=== PATIENT | female | born 1940 | race Caucasian/White ===

== ENCOUNTER 2023-06-28 15:34 | Inpatient (IN) | payer MEDICARE ==
[2023-06-28] MEDS ORDERED: Sodium Chloride 0.9% 10 ML Syringe FLUSH PRN (15:35)
[2023-06-28] MEDS ORDERED: Nitroglycerin 0.4 MG Tab.SL SL ONE (15:46)
[2023-06-28 15:52] LABS: BASOPHILS ABSOLUTE AUTO 0.03 K/uL (0.00-0.10); BASOPHILS PERCENT AUTO 0.2 % (0.1-1.3); EOSINOPHILS ABSOLUTE AUTO 0.45 K/uL (0.00-0.40); EOSINOPHILS PERCENT AUTO 3.7 % (0.0-5.4); HEMATOCRIT 37.1 % (34.3-46.0); HEMOGLOBIN 11.5 g/dL (11.2-15.5); IMMATURE GRAN ABSOLUTE AUTO 0.05 K/uL (0.00-0.23); IMMATURE GRAN PERCENT AUTO 0.4 % (0.0-0.7); LYMPHOCYTES PERCENT AUTO 10.7 % (11.4-47.7); MEAN CORPUSCULAR HEMOGLOBIN 28.8 pg (31.6-35.5); MEAN CORPUSCULAR VOLUME 92.8 fL (81.4-99.0); MONOCYTES ABSOLUTE AUTO 1.01 K/uL (0.20-0.90); MONOCYTES PERCENT AUTO 8.3 % (3.3-12.6); NEUTROPHILS ABSOLUTE AUTO 9.34 K/uL (1.0-7.6); NEUTROPHILS PERCENT AUTO 76.7 % (40.0-78.1); PLATELET COUNT,PLT 195 K/uL (130-375); WHITE BLOOD CELL COUNT,WBC 12.2 K/uL (3.2-11.0)
[2023-06-28 16:12] LABS: PROTHROMBIN TIME 9.8 sec (9.2-10.6); PTT,PARTIAL THROMBOPLSTIN TIME 25.8 sec (21.8-27.3)
[2023-06-28 16:16] LABS: ANION GAP 8.2 mmol/L (5.0-14.0); CALCIUM 8.7 mg/dL (8.5-10.1); CREATININE 0.9 mg/dL (0.6-1.0); EST CRCL DRUG DOSING (CG) 41.62 mL/min; POTASSIUM,K 4.2 mmol/L (3.6-5.2)
[2023-06-28] MEDS ORDERED: Naloxone 0.4 MG/ML SDV IVPUSH PRN (16:28)
[2023-06-28] MEDS ORDERED: Morphine 2 MG/ML SYRINGE IVPUSH ONE (16:28)
[2023-06-28] MEDS ORDERED: Labetalol 20 MG/4 ML Syringe IVPUSH ONE ×2 (16:29→17:40)
[2023-06-28] MEDS ORDERED: Iopamidol 755 Mg/ML 100 ML Bottle IV ONE (16:42)
[2023-06-28] MEDS ORDERED: Sodium Chloride 0.9% 10 ML Syringe FLUSH ONE (16:42)
[2023-06-28] MEDS ORDERED: Sodium Chloride 0.9% 75 ML IV ONE (16:42)
[2023-06-28 17:19] LABS: APPEARANCE,URINE CLEAR (CLEAR); BILIRUBIN,URINE NEGATIVE (NEGATIVE); COLOR,URINE YELLOW (YELLOW); GLUCOSE,URINE NEGATIVE (NEGATIVE); KETONES,URINE NEGATIVE (NEGATIVE); LEUKOCYTE ESTERASE,URINE TRACE (NEGATIVE); NITRITE,URINE NEGATIVE (NEGATIVE); OCCULT BLOOD,URINE NEGATIVE (NEGATIVE); PROTEIN,URINE NEGATIVE (NEGATIVE); UROBILINOGEN,URINE 0.2 EU/dL (0.2-1.0)
[2023-06-28 17:24] LABS: AMORPHOUS SEDIMENT,URINE NOT SEEN; BACTERIA,URINE MODERATE; EPITHELIAL CELLS,URINE MODERATE; MUCUS,URINE RARE; RBC,URINE NOT SEEN (0-5)
[2023-06-28] MEDS ORDERED: Isosorbide Mononitrate 30 MG Tab.ER PO ONE (17:46)
[2023-06-28] MEDS ORDERED: Magnesium Hydroxide 400 MG/5 ML Susp 30 ML Cup PO PRN (20:01)
[2023-06-28] MEDS ORDERED: Acetaminophen 325 MG Tab PO PRN (20:01)
[2023-06-28] MEDS ORDERED: Albuterol/Ipratropium 3.0-0.5 MG/3 ML Neb Soln NEB PRN (20:01)
[2023-06-28] MEDS ORDERED: Ondansetron 4 MG/2 ML SDV IV PRN (20:01)
[2023-06-28] MEDS ORDERED: Melatonin 3 MG Tab PO PRN (20:01)
[2023-06-28] MEDS ORDERED: Furosemide 40 MG/4 ML VIAL IVPUSH ONE (20:01)
[2023-06-28] MEDS ORDERED: Sennosides/Docusate Sodium 50-8.6 MG Tab PO PRN (20:01)
[2023-06-28] MEDS ORDERED: Ondansetron 4 MG Tab.DIS PO PRN (20:01)
[2023-06-28] MEDS: Enoxaparin 40 MG/0.4 ML Syringe SUBCUT SCH (20:34)
[2023-06-28] MEDS: Venlafaxine 75 MG Tab PO SCH (20:34)
[2023-06-28] MEDS: Gabapentin 300 MG Cap PO SCH (20:34)
[2023-06-28] MEDS: Acetaminophen 325 MG Tab PO PRN (20:35)
[2023-06-28] MEDS ORDERED: Azithromycin 500 MG in Sodium Chloride 0.9% 250 ML IV SCH (22:30)
[2023-06-29] MEDS: cefTRIAXone 1 GM in Sodium Chloride 0.9% 50 ML IV SCH ×2 (00:12→22:27)
[2023-06-29] MEDS: Acetaminophen 325 MG Tab PO PRN ×3 (03:23→22:27)
[2023-06-29 05:32] LABS: HEMATOCRIT 31.3 % (34.3-46.0); HEMOGLOBIN 9.7 g/dL (11.2-15.5); MEAN CORPUSCULAR HEMOGLOBIN 28.7 pg (31.6-35.5); MEAN CORPUSCULAR VOLUME 92.6 fL (81.4-99.0); RED BLOOD CELL COUNT 3.38 M/uL (3.77-5.24)
[2023-06-29 05:51] LABS: CALCIUM 8.2 mg/dL (8.5-10.1); CREATININE 0.9 mg/dL (0.6-1.0); EST CRCL DRUG DOSING (CG) 41.62 mL/min; POTASSIUM,K 3.8 mmol/L (3.6-5.2)
[2023-06-29 05:54] LABS: ANION GAP 9.8 mmol/L (5.0-14.0)
[2023-06-29] MEDS: Gabapentin 300 MG Cap PO SCH ×3 (08:23→21:03)
[2023-06-29] MEDS: atorvaSTATin 20 MG Tab PO SCH (08:23)
[2023-06-29] MEDS: Pantoprazole 40 MG Tab.CR PO SCH (08:23)
[2023-06-29] MEDS: buPROPion 150 MG Tab.ER PO SCH (08:23)
[2023-06-29] MEDS: Lisinopril 20 MG Tab PO SCH (08:24)
[2023-06-29] MEDS: metFORMIN 500 MG Tab PO SCH ×2 (08:24→16:11)
[2023-06-29] MEDS: Atenolol 25 MG Tab PO SCH (08:24)
[2023-06-29] MEDS: Venlafaxine 75 MG Tab PO SCH ×2 (09:59→21:03)
[2023-06-29] MEDS: Pioglitazone 15 MG Tab PO SCH (09:59)
[2023-06-29] MEDS ORDERED: Azithromycin 250 MG Tab PO SCH (21:00)
[2023-06-29] MEDS: Enoxaparin 40 MG/0.4 ML Syringe SUBCUT SCH (21:03)
[2023-06-30] MEDS: Gabapentin 300 MG Cap PO SCH (08:08)
[2023-06-30] MEDS: Pantoprazole 40 MG Tab.CR PO SCH (08:08)
[2023-06-30] MEDS: Pioglitazone 15 MG Tab PO SCH (08:09)
[2023-06-30] MEDS: Venlafaxine 75 MG Tab PO SCH (08:09)
[2023-06-30] MEDS: Atenolol 25 MG Tab PO SCH (08:09)
[2023-06-30] MEDS: Lisinopril 20 MG Tab PO SCH (08:09)
[2023-06-30] MEDS: buPROPion 150 MG Tab.ER PO SCH (08:11)
[2023-06-30] MEDS: atorvaSTATin 20 MG Tab PO SCH (08:11)
[2023-06-30] MEDS: metFORMIN 500 MG Tab PO SCH (08:11)
== END 2023-06-30 11:46 | disposition home or self-care (01) | DRG 193 ==
LOC: JP.ED 15:34 → JP.MS 18:56
PROVIDERS: ADMIT Registered Nurse; ATTEND Internal Medicine
DX: J18.9 Pneumonia, unspecified organism (principal); J96.01 Acute respiratory failure with hypoxia; J90 Pleural effusion, not elsewhere classified; I11.0 Hypertensive heart disease with heart failure; I50.9 Heart failure, unspecified; Z20.822 Contact with and (suspected) exposure to COVID-19; D73.89 Other diseases of spleen; E86.0 Dehydration; K82.8 Other specified diseases of gallbladder; E11.9 Type 2 diabetes mellitus without complications; E66.01 Morbid (severe) obesity due to excess calories; G47.30 Sleep apnea, unspecified; F32.A Depression, unspecified; Z96.649 Presence of unspecified artificial hip joint; Z96.659 Presence of unspecified artificial knee joint; K21.9 Gastro-esophageal reflux disease without esophagitis; K58.9 Irritable bowel syndrome, unspecified; I35.0 Nonrheumatic aortic (valve) stenosis; Z88.8 Allergy status to other drugs, medicaments and biological substances; Z79.84 Long term (current) use of oral hypoglycemic drugs; Z79.899 Other long term (current) drug therapy; Z68.34 Body mass index [BMI] 34.0-34.9, adult; Z87.01 Personal history of pneumonia (recurrent); Z90.710 Acquired absence of both cervix and uterus; Z98.890 Other specified postprocedural states
CPT/HCPCS: 36415; 71045 ×2; 71275 ×2; 80048; 81001; 84484 ×2; 85025; 85379; 85610; 85730; 93005; 93010; 96374; 99285 ×2; A9270 ×2; J3490 ×3; Q9967; U0002; 85027; 87040; 93306; 97161-GP; 99223; 99233; 99238; J0456; J0696; J1650; J1940; J7050

== ENCOUNTER 2024-10-28 13:44 | Emergency (ER) | payer MEDICARE ==
[2024-10-28] MEDS: Famotidine 20 MG Tab PO ONE (14:51)
== END 2024-10-28 16:10 | disposition home or self-care (01) ==
LOC: JP.ED 13:44
DX: S05.12XA Contusion of eyeball and orbital tissues, left eye, initial encounter (principal); Z88.5 Allergy status to narcotic agent; Z79.899 Other long term (current) drug therapy; Z90.710 Acquired absence of both cervix and uterus; W18.39XA Other fall on same level, initial encounter; Y93.89 Activity, other specified
CPT/HCPCS: 70450; 70486; 99283; A9270